=== PATIENT | female | born 1970 | race Caucasian/White ===

== ENCOUNTER 2020-10-16 17:18 | Emergency (ER) | payer OTHER ==
[~2020-10-16 17:18] MED LIST: CITALOPRAM 40MG40 MG PO; CLARITIN10 MG PO; COLACE100 MG PO; FLONASE ALLER15.8 ML; K-DUR20 MEQ PO; LASIX20 MG PO; MELATONIN3 MG PO; NITROFURANTOIN50 MG PO; OMEPRAZOLE 20MG20 MG PO; ONE DAILY FOR1 EAC3 PO; SPORANOX 100MG100 MG PO; TAMSULOSIN HCL0.4 MG PO; TERBINAFINE HC250 MG PO; VOLTAREN **OUT75 MG PO
[2020-10-16 17:49] LABS: BASOPHIL 0.3 % (0-2); EOSINOPHIL 0.1 % (0-5); HCT 37.3 % (37.0-47.0); HGB 12.8 g/dl (12.5-16.0); LYMPHOCYTE 5.1 % (15-48); MCH 33.2 pg (25.0-31.0); MCHC 34.3 g/dL (32.0-36.0); MCV 96.6 fL (78.0-100.0); MONOCYTE 1.6 % (0-12); NEUTROPHIL 91.8 % (41-80); NRBC 0; PLT 143 K/uL (150-400); RBC 3.86 M/uL (4.20-5.40); RDW 12.5 % (11.5-14.0)
[2020-10-16 17:51] LABS: WBC 7.3 K/uL (4.0-10.5)
[2020-10-16 18:17] LABS: LACTIC ACID 2.9 mmol/L (0.4-1.9)
[2020-10-16 18:17] LABS: BILIRUBIN NEGATIVE (NEGATIVE); BLOOD 1+ Ery/uL (NEGATIVE); CLARITY HAZY (CLEAR); COLOR YELLOW (YELLOW); GLUCOSE (U) NORMAL (NORMAL); LEUKOCYTES 2+ Leu/uL (NEGATIVE); NITRITE POSITIVE (NEGATIVE); PROTEIN 1+ mg/dL (NEGATIVE); SPECIFIC GRAVITY >=1.030 (1.001-1.030); UROBILINOGEN 0.2 mg/dL (0.2-1.0)
[2020-10-16 18:18] LABS: ALBUMIN 3.4 g/dL (3.4-5.0); CREATININE 1.07 mg/dL (0.51-0.95); GLOBULIN (CALCULATION) 3.3 g/dL; POTASSIUM 3.6 mmol/L (3.5-5.1); TOTAL PROTEIN 6.7 g/dL (6.4-8.2)
[2020-10-16 18:19] LABS: BILIRUBIN - TOTAL 0.7 mg/dL (0.2-1.0)
[2020-10-16 18:26] LABS: BACTERIA 2+; URINARY WBC 20-50
[2020-10-16] MEDS ORDERED: KEFLEX250 MG PO (21:39)
== END 2020-10-16 21:50 | disposition home or self-care (01) ==
LOC: FER 17:18
PROVIDERS: Nurse Practitioner Family
DX: N39.0 Urinary tract infection, site not specified (principal); I10 Essential (primary) hypertension; D64.9 Anemia, unspecified; E03.9 Hypothyroidism, unspecified; K21.9 Gastro-esophageal reflux disease without esophagitis; F17.210 Nicotine dependence, cigarettes, uncomplicated; Z85.3 Personal history of malignant neoplasm of breast; Z88.2 Allergy status to sulfonamides; Z88.8 Allergy status to other drugs, medicaments and biological substances; Z79.899 Other long term (current) drug therapy
CPT/HCPCS: 36415; 80053; 81001; 83605; 84145; 85025; 87040; 87088; J0696; J7030